=== PATIENT | female | born 1975 | race Caucasian/White ===

== ENCOUNTER 2022-01-27 10:54 | Emergency (ER) | payer MEDICAID ==
[~2022-01-27] VITALS: Ht 172.7 cm; Wt 77.0 kg
[2022-01-27] MEDS ORDERED: SODIUM CHLORIDE 0.9% 1,000 ML IV ONE (11:15)
[2022-01-27 11:36] LABS: BASOPHILS % 0.1 % (0.0-2.0); EOSINOPHILS % 0.1 % (0.0-5.0); HEMATOCRIT. 46.1 % (36.0-48.0); HEMOGLOBIN. 15.9 g/dL (12.0-16.0); LYMPHOCYTES % 23.1 % (20.0-50.0); MEAN CORPUSCULAR HEMOGLOBIN 34.7 pg (28.0-32.0); MEAN CORPUSCULAR VOLUME 100.3 fL (81.0-99.0); MEAN PLATELET VOLUME 8.7 fl (7.4-10.4); MONOCYTES % 6.5 % (2.0-8.0); NEUTROPHILS % 70.2 % (40.0-76.0); PLATELET 184 x1000/uL (130-400); RED CELL DISTRIBUTION WIDTH 15.9 % (11.6-14.6)
[2022-01-27 11:37] LABS: CLARITY URINE CLEAR (CLEAR); COLOR URINE YELLOW (YELLOW); KETONES URINE 2+ (NEGATIVE); LEUKOCYTE ESTERASE URINE NEGATIVE (NEGATIVE); NITRITE URINE POSITIVE (NEGATIVE); OCCULT BLOOD URINE NEGATIVE (NEGATIVE); PROTEIN URINE 2+ (NEGATIVE); SPECIFIC GRAVITY URINE 1.021 (1.005-1.030)
[2022-01-27 11:43] LABS: CHLORIDE 103 mEq/L (98-107)
[2022-01-27 11:50] LABS: ETHANOL BLOOD < 10 mg/dL
[2022-01-27 11:57] LABS: HCG SCREEN NEGATIVE
[2022-01-27 12:22] LABS: *AMPHETAMINES SCREEN URINE NEGATIVE (NEGATIVE); *BARBITURATES SCREEN URINE NEGATIVE (NEGATIVE); *BENZODIAZEPINES SCREEN URINE NEGATIVE (NEGATIVE); *COCAINE SCREEN URINE NEGATIVE (NEGATIVE); METHADONE URINE SCREEN NEGATIVE (NEGATIVE); OPIATES URINE SCREEN NEGATIVE (NEGATIVE); PHENCYCLIDINE URINE SCREEN NEGATIVE (NEGATIVE)
[2022-01-27 12:31] LABS: CANNABINOID URINE SCREEN PRESUMTIVE POSITIVE (NEGATIVE)
[2022-01-27] MEDS ORDERED: NAPR-677 MT (14:44)
[2022-01-27] MEDS ORDERED: NITR-87 MT (14:44)
[2022-01-27 15:00] VITALS: BP 137/84
== END 2022-01-27 15:08 | disposition home or self-care (01) ==
LOC: ER 10:54
DX: R56.9 Unspecified convulsions (principal); N39.0 Urinary tract infection, site not specified; F12.10 Cannabis abuse, uncomplicated; Z88.5 Allergy status to narcotic agent
CPT/HCPCS: 36415; 70450; 80053; 80305; 80320; 81003; 84703; 85025; 96360; 99284; J7030; Z7610; G0480

== ENCOUNTER 2023-02-12 08:02 | Emergency (ER) | payer OTHER ==
[~2023-02-12] VITALS: Ht 165.1 cm; Wt 70.0 kg
[~2023-02-12 08:02] MED LIST: KETO10TA2 MT; NAPR-677 MT; NITR-87 MT
[2023-02-12 08:04] VITALS: O2SAT 88
[2023-02-12] MEDS ORDERED: SODIUM CHLORIDE 0.9% 1,000 ML IV ONE (08:15)
[2023-02-12] MEDS ORDERED: LEVETIRACETAM 1000MG PREMIX 200 ML IV ONE (08:15)
[2023-02-12 08:50] LABS: BASOPHILS % 0.3 % (0.0-2.0); EOSINOPHILS % 0.1 % (0.0-5.0); HEMATOCRIT. 43.7 % (36.0-48.0); HEMOGLOBIN. 13.6 g/dL (12.0-16.0); LYMPHOCYTES % 18.2 % (20.0-50.0); MEAN CORPUSCULAR HEMOGLOBIN 30.4 pg (28.0-32.0); MEAN CORPUSCULAR HGB CONC 31.1 g/dL (31.0-37.0); MEAN CORPUSCULAR VOLUME 97.8 fL (81.0-99.0); NEUTROPHILS % 74.4 % (40.0-76.0); PLATELET 240 x1000/uL (130-400); RED BLOOD CELL COUNT 4.47 mill/uL (4.2-5.4); WHITE BLOOD COUNT 14.2 x1000/uL (4.5-11.0)
[2023-02-12 08:58] LABS: INDEX HEMOLYSI 4 (1-3)
[2023-02-12 09:01] LABS: AMMONIA 106 uMol/L (<32)
[2023-02-12 09:09] LABS: CHLORIDE 105 mEq/L (98-107); INDEX HEMOLYSI 4 (1-3); INDEX ICTERIC 1 (1-4); INDEX LIPEMIC 1 (1-3); SODIUM 135 mEq/L (136-145)
[2023-02-12 09:27] LABS: POTASSIUM 4.3 mEq/L (3.5-5.1)
[2023-02-12 09:53] LABS: CARBON DIOXIDE 12 mEq/L (21-32); GLUCOSE 218 mg/dL (70-105)
[2023-02-12 09:54] LABS: ALANINE AMINOTRANSFERASE 16 IU/L (13-61); ALBUMIN 3.8 g/dL (3.4-5.0); ASPARTATE AMINOTRANSFERASE 28 IU/L (15-37); BILIRUBIN TOTAL 0.7 mg/dL (0.1-1.0); CALCIUM 8.2 mg/dL (8.5-10.1); PROTEIN TOTAL 8.4 g/dL (6.0-8.3); UREA NITROGEN BLOOD 15 mg/dL (7-21)
[2023-02-12 09:55] LABS: CREATINE KINASE 483 IU/L (26-192); ETHANOL BLOOD < 10 mg/dL (<10); PHENYTOIN 0.7 ug/mL (10-20)
[2023-02-12 09:56] LABS: CARBAMAZEPINE < 0.5 ug/mL (4-12); VALPROIC ACID 3.4 ug/mL (50-100)
[2023-02-12 10:31] LABS: HCG SCREEN NEGATIVE
[2023-02-12 10:40] LABS: CLARITY URINE TURBID (CLEAR); COLOR URINE YELLOW (YELLOW); GLUCOSE URINE 2+ (NEGATIVE); KETONES URINE TRACE (NEGATIVE); LEUKOCYTE ESTERASE URINE NEGATIVE (NEGATIVE); NITRITE URINE NEGATIVE (NEGATIVE); OCCULT BLOOD URINE 1+ (NEGATIVE); PROTEIN URINE 2+ (NEGATIVE); SPECIFIC GRAVITY URINE 1.017 (1.005-1.030); UROBILINOGEN URINE 0.2 E.U./dL (0.2-1.0)
[2023-02-12 10:45] LABS: SQUAMOUS EPITHELIAL CELL URINE NONE SEEN /lpf (RARE/1+); WBC URINE 0-2 /hpf (0-2); YEAST URINE NONE SEEN
[2023-02-12 11:02] LABS: BACTERIA URINE RARE; RBC URINE 0-2 /hpf (0-2); URIC ACID CRYSTALS URINE 4+ /lpf
[2023-02-12 11:17] LABS: *AMPHETAMINES SCREEN URINE NEGATIVE (NEGATIVE); *BARBITURATES SCREEN URINE NEGATIVE (NEGATIVE); *BENZODIAZEPINES SCREEN URINE NEGATIVE (NEGATIVE); *COCAINE SCREEN URINE NEGATIVE (NEGATIVE); ECSTASY MDMA SCREEN URINE NEGATIVE (NEGATIVE); OPIATES URINE SCREEN NEGATIVE (NEGATIVE); PHENCYCLIDINE URINE SCREEN NEGATIVE (NEGATIVE)
[2023-02-12 11:40] LABS: CANNABINOID URINE SCREEN PRESUMTIVE POSITIVE (NEGATIVE)
[2023-02-12] MEDS ORDERED: LEVE1000 MT (12:31)
[2023-02-12 13:17] LABS: PROTHROMBIN TIME 10.3 sec (9.6-11.0)
[2023-02-12 16:30] VITALS: BP 118/75; PULSE 81; RESP 22; TEMP 97.4
== END 2023-02-12 16:45 | disposition home or self-care (01) ==
LOC: ER 09:28
DX: G40.909 Epilepsy, unspecified, not intractable, without status epilepticus (principal); Z88.6 Allergy status to analgesic agent; Z88.5 Allergy status to narcotic agent
CPT/HCPCS: 80053; 80305; 81003; 80320; 82140; 80156; 82550; 80185; 84703; 83690; 84443; 80165; 85025; 85610; 36415; 70450; 96365; 99285; J1953; J7030; Z7610 ×2; G0480